=== PATIENT | female | born 1945 | race Caucasian/White ===

== ENCOUNTER 2020-11-13 18:57 | Emergency (ER) | payer OTHER, MEDICARE, SELFPAY ==
[~2020-11-13] VITALS: Ht 152.4 cm; Wt 74.4 kg
[~2020-11-13 18:57] MED LIST: ASPI-1077 PO; DITXL5 PO; DULO60CA41 PO; EXEN2VIA SQ; FENO160T8 PO; FESO8TAB PO; FURO-150 PO; GABA-531 PO; INSU100V9 SUBCUT; MELO15TA13 PO; PRAV40TA PO; REPA2TAB PO; SPIR25TA PO; [UNRECOGNIZED DRUG - OTHER] SQ
[2020-11-13 19:02] VITALS: BP_SYST 91
[2020-11-13 20:00] LABS: PROTHROMBIN TIME 10.6 SECS (9.5-12.5)
[2020-11-13 20:30] LABS: BASOPHILS % (AUTO) 1.1 % (0.0-2.0); EOSINOPHILS # (AUTO) 0.4 K/uL (0.0-0.4); EOSINOPHILS % (AUTO) 3.9 % (0.0-4.0); HEMATOCRIT 25.3 % (36-48); HEMOGLOBIN 8.9 g/dL (12.0-16.0); LYMPHOCYTES # (AUTO) 1.9 K/uL (1.0-5.5); LYMPHOCYTES % (AUTO) 17.4 % (20.5-51.5); MEAN CORPUSCULAR HEMOGLOBIN 36 pg (27-31); MEAN CORPUSCULAR HGB CONC 35 % (32-36); MEAN CORPUSCULAR VOLUME 102 fL (79.0-98.0); MONOCYTES # (AUTO) 0.8 K/uL (0.0-1.0); MONOCYTES % (AUTO) 7.4 % (1.7-9.3); NEUTROPHILS # (AUTO) 7.5 K/uL (1.8-7.7); NEUTROPHILS % (AUTO) 70.2 % (40.0-70.0); PLATELET COUNT (AUTO) 332 K/uL (130-430); RED BLOOD CELL COUNT(AUTO) 2.48 MIL/uL (4.2-6.2); RED CELL DISTRIBUTION WIDTH 18.4 % (9.0-15.0); WHITE BLOOD COUNT (AUTO) 10.7 K/uL (4.8-10.8)
[2020-11-13 20:36] LABS: BASOPHILS # (AUTO) 0.1 K/uL (0.0-0.2)
[2020-11-13] MEDS ORDERED: ALBUTEROL SULFATE 0.083% 2.5 MG/3 ML VIAL.NEB INH ONE (20:45)
[2020-11-13] MEDS ORDERED: IPRATROPIUM BROM 0.5 MG/2.5 ML VIAL.NEB (ATROVENT) INH ONE (20:45)
[2020-11-13 21:04] LABS: ANION GAP 12 (5-15); CALCIUM 9.4 mg/dL (8.4-11.0); CHLORIDE 104 mmol/L (98-107); CREATININE 1.25 mg/dL (0.55-1.30); GLUCOSE 221 mg/dL (70-99); POTASSIUM 4.6 mmol/L (3.5-5.1); SODIUM SERUM 136 mmol/L (136-145); UREA NITROGEN, BLOOD 29 mg/dL (8-21)
[2020-11-13 21:08] LABS: ALANINE AMINOTRANSFERASE 22 U/L (12-78); ALBUMIN 3.2 g/dL (3.4-4.8); ASPARTATE AMINOTRANSFERASE 21 U/L (10-37); TOTAL BILIRUBIN 2.1 mg/dL (0.0-1.0)
[2020-11-13 21:50] VITALS: BP_SYST 164
== END 2020-11-13 21:50 | disposition home or self-care (01) ==
LOC: SED 18:57
DX: J84.10 Pulmonary fibrosis, unspecified (principal); E11.9 Type 2 diabetes mellitus without complications; Z88.1 Allergy status to other antibiotic agents; Z88.8 Allergy status to other drugs, medicaments and biological substances; Z79.899 Other long term (current) drug therapy
CPT/HCPCS: 36415; 71045; 80053; 83880; 84484; 85025; 85610; 85730; 93005; 94640; 99285; J7613